=== PATIENT | female | born 1955 | race Caucasian/White ===

== ENCOUNTER 2019-08-29 15:26 | Outpatient (CLI) | payer MEDICARE, OTHER, SELFPAY ==
--- NOTE | ~2019-08-29 | XR_ITS ---
EXAMINATION: XR knee RT 3V EXAM DATE: 08/29/2019 16:07 INDICATION: Bilateral knee pain. Rheumatoid arthritis. TECHNIQUE: Right knee lateral, frontal AP, frontal PA tunnel, sunrise projections. There is no prior study for comparison. Correlation was made with contralateral knee same date. FINDINGS: No evidence osteochondral defect or joint body in the right knee joint. There is moderate patellofemoral and medial tibiofemoral compartment primary osteoarthritis, symmetric to the contrala teral side. There are no acute fractures or dislocations identified. There is no subcutaneous gas. The soft tissue is unremarkable. There are no radiopaque foreign bodies. IMPRESSION: Moderate right knee osteoarthritis. Reviewed, dictated and finalized at location A.
--- NOTE | ~2019-08-29 | XR_ITS ---
EXAMINATION: XR knee LT 3V EXAM DATE: 08/29/2019 16:06 INDICATION: Rheumatoid arthritis. Bilateral knee pain. TECHNIQUE: Left knee lateral, frontal AP, frontal PA tunnel, sunrise projections. There is no prior study for comparison. FINDINGS: No evidence osteochondral defect or joint body in the left knee joint. There is moderate patellofemoral and medial tibiofemoral compartment primary osteoarthritis. No joint effusion. There are no acute fractures or dislocations identified. There is no subcutaneous gas. The soft tissue is unremarkable. There are no radiopaque foreign bodies. IMPRESSION: Moderate left knee osteoarthritis. Reviewed, dictated and finalized at location A.
== END 2019-08-29 15:27 | disposition home or self-care (01) ==
PROVIDERS: PCP Internal Medicine; Visit Provider Internal Medicine
DX: M25.562 Pain in left knee (principal); M25.561 Pain in right knee; M17.0 Bilateral primary osteoarthritis of knee
CPT/HCPCS: 73562

== ENCOUNTER 2019-12-19 17:07 | Outpatient (CLI) | payer MEDICARE, OTHER, SELFPAY ==
--- NOTE | ~2019-12-19 | XR_ITS ---
XR hand BI arthritis min 3V DATE: 12/19/2019 18:19 INDICATION: Pain. Osteoarthritis. TECHNIQUE: 4 views of each hand COMPARISON: None FINDINGS: There are prominent osteoarthritic changes including joint space narrowing and spurring at the interphalangeal joints in particular. Osteoarthritic changes are also noted at the first carpomet acarpal joints. No fracture, dislocation, periosteal reaction or bone destruction is detected. No erosive change or chondrocalcinosis. IMPRESSION: Polyarticular osteoarthritis with predilection for the usual first carpometacarpal and in terphalangeal joints Reviewed, dictated and finalized at location A. IMPRESSION: Polyarticular osteoarthritis with predilection for the usual first carpometacarpal and interphalangeal joints
--- NOTE | ~2019-12-19 | XR_ITS ---
XR foot LT standing 2V DATE: 12/19/2019 18:18 INDICATION: Rheumatoid arthritis TECHNIQUE: Weightbearing AP and lateral views COMPARISON: None FINDINGS: There is osteoarthritic joint space narrowing and spurring at the tarsal and tarsometatarsa l joints as well as first metatarsophalangeal joint. There may be involvement of some of the interpha langeal joints as well but these are not optimally demonstrated due to positioning. Plantar calcaneal enthesopathy without associated erosive change or periostitis. No fracture, dislocation, periosteal reaction or bone destruction. IMPRESSION: Polyarticular osteoarthritis Reviewed, dictated and finalized at location A.
--- NOTE | ~2019-12-19 | XR_ITS ---
XR hip BI 2V w AP pelvis DATE: 12/19/2019 18:18 INDICATION: Rheumatoid arthritis TECHNIQUE: AP pelvis. AP and lateral views of each hip COMPARISON: None FINDINGS: Osteitis pubis. The sacroiliac joints appear normal. Hip joint spaces are symmetric and wel l preserved. No pelvic fracture or bone destruction. No fracture, dislocation, avascular necrosis or bone destruct ion of either hip. Mild levoscoliosis and degenerative change of the lumbar spine. IMPRESSION: Osteitis pubis Reviewed, dictated and finalized at location A. IMPRESSION: Osteitis pubis
--- NOTE | ~2019-12-19 | XR_ITS ---
XR foot RT standing 2V DATE: 12/19/2019 18:18 INDICATION: Rheumatoid arthritis TECHNIQUE: Weightbearing AP and lateral views COMPARISON: None FINDINGS: Osteoarthritic changes are noted at some of the tarsal and tarsometatarsal joints. There is joint space narrowing and mild spurring at the first metatarsophalangeal joint consistent with osteo arthritis. There is narrowing at some of the interphalangeal joints, also consistent with osteoarthri tis. There is mild plantar calcaneal enthesopathy without any associated erosive change or periostitis. No fracture or dislocation, periosteal reaction or bone destruction. IMPRESSION: Polyarticular osteoarthritis Plantar calcaneal enthesopathy Reviewed, dictated and finalized at location A.
[2019-12-19 18:13] LABS: Hematocrit 39.6 % (37.0-47.0); Hemoglobin 13.4 g/dL (12.0-15.0); Mean Corpuscular HGB Conc 33.8 g/dl (32-36); Mean Corpuscular Hemoglobin 32.4 pg (26-34); Mean Corpuscular Volume 95.7 fl (80-100); Mean Platelet Volume 10.6 fl (7.4-10.4); Platelet Count Result 240 k/mm3 (150-375); Red Blood Count 4.14 M/mm3 (4.2-5.4); Red Cell Distribution Width 12.3 % (11.5-14.5); White Blood Count 5.7 K/mm3 (4.5-10.0)
[2019-12-19 18:25] LABS: Add Urine Microscopic? YES; Appearance Urine Cloudy (Clear); Bacteria Urine Trace /hpf; Bilirubin Urine Negative (Negative); Blood Urine Negative (Negative); Color Urine Yellow (Yellow); Glucose Urine UA Negative (Negative); Ketones Urine Negative (Negative); Leukocyte Esterase Ur 3+ LEU/UL (Negative); Mucus Urine Rare /lpf; Nitrate Urine Negative (Negative); Protein Urine 1+ mg/dL (Negative); Specific Grav Ur 1.026 (1.001-1.035); Squamous Epithelial Cell Urine Many /hpf (Few); Urobilinogen Urine Negative mg/dL (<2.0); WBC Urine 31-50 /hpf
[2019-12-19 18:35] LABS: Rheumatoid Factor < 8.6 IU/ML (<12)
[2019-12-19 18:43] LABS: Alanine Aminotransferase 16 U/L (4-35); Albumin Level 4.3 g/dL (3.5-5.1); Alkaline Phosphatase 89 U/L (38-126); Anion Gap 6 mmol/L (8-16); Aspartate Amino Transferase 29 U/L (14-36); Bilirubin,Total 0.5 mg/dL (0.2-1.3); Blood Urea Nitrogen 22 mg/dL (7-17); CRP < 0.5 mg/dL (<1.0); Calcium 9.2 mg/dL (8.4-10.2); Carbon Dioxide 28 mmol/L (22-30); Chloride 103 mmol/L (98-107); Estimated Glomerular Filt Rate > 60; Glucose 116 mg/dL (65-105); Sodium 137 mmol/L (137-145)
[2019-12-19 18:44] LABS: Potassium 4.2 mmol/L (3.4-5.0)
[2019-12-19 19:35] LABS: Erythrocyte Sedimentation Rate 22 mm/hr (0-20)
[2019-12-19 19:49] LABS: Hepatitis B Surface Antigen Negative (Negative)
[2019-12-19 19:54] LABS: Hepatitis B Core IgM Result Negative (Negative)
[2019-12-19 20:07] LABS: Hepatitis B Surface Anti Res Negative
[2019-12-23 09:26] LABS: ANA Cascade Screen Negative (Negative)
[2019-12-25 10:56] LABS: Anti Cyclic Citrullinated Pept <16 Units (<20)
== END 2019-12-19 17:08 | disposition home or self-care (01) ==
PROVIDERS: PCP Internal Medicine; Referring Provider Internal Medicine; Visit Provider Internal Medicine
DX: M05.79 Rheumatoid arthritis with rheumatoid factor of multiple sites without organ or systems involvement (principal); M19.90 Unspecified osteoarthritis, unspecified site; M06.9 Rheumatoid arthritis, unspecified; M19.072 Primary osteoarthritis, left ankle and foot; M19.071 Primary osteoarthritis, right ankle and foot; M19.041 Primary osteoarthritis, right hand; M19.042 Primary osteoarthritis, left hand
CPT/HCPCS: 36415; 73130; 73521; 73620; 80053; 81001; 85027; 85652; 86038; 86140; 86200; 86430; 86705; 86706; 87086; 87088; 87340

== ENCOUNTER 2020-02-26 09:57 | Outpatient (CLI) | payer MEDICARE, OTHER, SELFPAY ==
[2020-02-26 10:23] LABS: Hematocrit 42.1 % (37.0-47.0); Hemoglobin 14.2 g/dL (12.0-15.0); Mean Corpuscular HGB Conc 33.7 g/dl (32-36); Mean Corpuscular Hemoglobin 32.1 pg (26-34); Mean Platelet Volume 10.8 fl (7.4-10.4); Platelet Count Result 206 k/mm3 (150-375); Red Blood Count 4.43 M/mm3 (4.2-5.4); Red Cell Distribution Width 12.1 % (11.5-14.5)
[2020-02-26 10:34] LABS: Add Urine Microscopic? YES; Appearance Urine Cloudy (Clear); Bacteria Urine Trace /hpf; Bilirubin Urine Negative (Negative); Blood Urine Negative (Negative); Color Urine Yellow (Yellow); Glucose Urine UA Negative (Negative); Ketones Urine Negative (Negative); Leukocyte Esterase Ur 3+ LEU/UL (Negative); Mucus Urine Rare /lpf; Nitrate Urine Negative (Negative); Protein Urine Negative (Negative); Specific Grav Ur 1.018 (1.001-1.035); Squamous Epithelial Cell Urine Many /hpf (Few); Transitional Epi Cells Urine Rare /hpf (None Seen); Urobilinogen Urine Negative mg/dL (<2.0)
[2020-02-26 11:53] LABS: Alanine Aminotransferase 22 U/L (4-35); Albumin Level 4.2 g/dL (3.5-5.1); Alkaline Phosphatase 102 U/L (38-126); Anion Gap 7 mmol/L (8-16); Aspartate Amino Transferase 36 U/L (14-36); Bilirubin,Total 0.6 mg/dL (0.2-1.3); Blood Urea Nitrogen 17 mg/dL (7-17); CRP < 0.5 mg/dL (<1.0); Calcium 9.4 mg/dL (8.4-10.2); Carbon Dioxide 26 mmol/L (22-30); Chloride 108 mmol/L (98-107); Estimated Glomerular Filt Rate > 60; Glucose 101 mg/dL (65-105); Potassium 4.1 mmol/L (3.4-5.0); Sodium 141 mmol/L (137-145)
[2020-02-26 11:55] LABS: Hepatitis C Virus Antibody Negative (Negative)
[2020-02-26 12:02] LABS: Erythrocyte Sedimentation Rate 24 mm/hr (0-20)
[2020-02-29 00:59] LABS: NIL 0.02 IU/mL; Quantiferon TB Plus, 1T NEGATIVE (NEGATIVE); TB1-NIL 0.01 IU/mL
== END 2020-02-26 09:58 | disposition home or self-care (01) ==
PROVIDERS: PCP Internal Medicine; Visit Provider Internal Medicine
DX: M05.79 Rheumatoid arthritis with rheumatoid factor of multiple sites without organ or systems involvement (principal); M19.90 Unspecified osteoarthritis, unspecified site
CPT/HCPCS: 36415; 80053; 81001; 85027; 85652; 86140; 86480; 86803; 87086; 87088

== ENCOUNTER 2020-09-24 07:35 | Outpatient (CLI) | payer MEDICARE, OTHER, SELFPAY ==
--- NOTE | 2020-09-24 08:20 | ECG_ITS ---
Measurements Intervals [place] Rate: 55 P: 40 CA: 176 QRS: -12 QRSD: 101 T: 48 QT: 405 QTc: 391 Interpretive Statements SINUS BRADYCARDIA DELAYED PRECORDIAL R/S TRANSITION VOLTAGE CRITERIA FOR LVH BORDERLINE T WAVE ABNORMALITY- ANTERIOR LEADS BORDERLINE ECG Electronically Signed On 09-24-2020 8:41:31 CDT by Ramsey Russell D.O.
[2020-09-24 09:02] LABS: Basophils Percent Auto 0.5 % (0.2-1.2); Eosinophils Absolute Auto 0.1 K/mm3 (0-0.3); Eosinophils Percent Auto 2.3 % (0-4.4); Hematocrit 44.2 % (37.0-47.0); Hemoglobin 14.5 g/dL (12.0-15.0); Immature Granulocyte Absolute 0.01 K/mm3 (0.00-0.031); Immature Granulocyte Percent A 0.3 % (0-0.5); Lymphocytes Absolute Auto 0.94 K/mm3 (0.9-3.2); Lymphocytes Percent Auto 23.9 % (18.3-44.2); Mean Corpuscular HGB Conc 32.8 g/dl (32-36); Mean Corpuscular Hemoglobin 30.9 pg (26-34); Mean Corpuscular Volume 94.2 fl (80-100); Mean Platelet Volume 10.9 fl (7.4-10.4); Monocytes Absolute Auto 0.3 K/mm3 (0.1-0.6); Monocytes Percent Auto 8.7 % (2.6-8.5); Neutrophils Absolute Auto 2.5 K/mm3 (1.3-6.7); Neutrophils Percent Auto 64.3 % (45.5-73.1); Platelet Count Result 212 k/mm3 (150-375); Red Blood Count 4.69 M/mm3 (4.2-5.4); Red Cell Distribution Width 12.5 % (11.5-14.5); White Blood Count 3.9 K/mm3 (4.5-10.0)
[2020-09-24 09:11] LABS: Albumin Level 4.6 g/dL (3.5-5.1); Estimated Glomerular Filt Rate > 60; Glucose 99 mg/dL (65-105)
[2020-09-24 09:12] LABS: Urine Cotinine NEGATIVE
[2020-09-24 09:13] LABS: Hemoglobin A1C 5.2 % (<5.7)
== END 2020-09-24 07:36 | disposition home or self-care (01) ==
LOC: ANHSURGERY 07:40
PROVIDERS: PCP Internal Medicine; Visit Provider Orthopaedic Surgery
DX: M17.0 Bilateral primary osteoarthritis of knee (principal); Z01.818 Encounter for other preprocedural examination; R94.31 Abnormal electrocardiogram [ECG] [EKG]
CPT/HCPCS: 80307; 82040; 82565; 82947; 83036; 85025; 86850; 86900; 86901; 87081; 93005

== ENCOUNTER → 2021-01-07 12:00 | Outpatient (CLI) | payer MEDICARE, OTHER, SELFPAY ==
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
== END ==
PROVIDERS: PCP Internal Medicine; Visit Provider Internal Medicine
DX: Z12.31 Encounter for screening mammogram for malignant neoplasm of breast (principal)
CPT/HCPCS: 77063; 77067

== ENCOUNTER 2021-07-22 01:16 | Day surgery (SDC) | payer MEDICARE, OTHER, SELFPAY ==
[2021-07-13 12:44] VITALS: BMI 35.6
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
[2021-07-22 08:43] VITALS: BP 138/68; PULSE 86; RESP 18; TEMP 36.6; O2SAT 100; BMI 34.9
[2021-07-22] MEDS: LACTATED RINGERS 1,000 ML 150 ML IV CONT (09:06)
[2021-07-22] MEDS: AMPICILLIN 2 GM/NS 100 ML 2 GM/100 ML BAG IVPB (09:07)
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
[2021-07-22 10:09] VITALS: BP 98/89; PULSE 83; RESP 24; O2SAT 95
[2021-07-22 10:19] VITALS: BP 112/86; PULSE 73; RESP 21; O2SAT 98
[2021-07-22 10:29] VITALS: BP 111/58; PULSE 74; RESP 19; O2SAT 100
== END 2021-07-22 10:42 | disposition home or self-care (01) ==
PROVIDERS: PCP Internal Medicine; Visit Provider Internal Medicine Gastroenterology
PROC: 0DJD8ZZ Inspection of Lower Intestinal Tract, Via Natural or Artificial Opening Endoscopic (ICD-10-PCS; CPT 45378; principal; 2021-07-22 10:00)
DX: Z12.11 Encounter for screening for malignant neoplasm of colon (principal); K57.30 Diverticulosis of large intestine without perforation or abscess without bleeding; I10 Essential (primary) hypertension; E78.5 Hyperlipidemia, unspecified; M06.9 Rheumatoid arthritis, unspecified; M17.0 Bilateral primary osteoarthritis of knee
CPT/HCPCS: 45385; 88305; J0290; J2704; J7120

== ENCOUNTER 2022-06-25 08:34 | Outpatient (CLI) | payer MEDICARE, OTHER, SELFPAY ==
[2022-06-25 19:24] LABS: Alanine Aminotransferase 21 U/L (6-35); Albumin Level 4.2 g/dL (3.5-5.1); Alkaline Phosphatase 109 U/L (38-126); Anion Gap 6 mmol/L (8-16); Aspartate Amino Transferase 35 U/L (14-36); Bilirubin,Total 0.7 mg/dL (0.2-1.3); Blood Urea Nitrogen 20 mg/dL (7-17); Carbon Dioxide 27 mmol/L (22-30); Chloride 102 mmol/L (98-107); Cholesterol 133 mg/dL (0-200); Estimated Glomerular Filt Rate > 60; Glucose 101 mg/dL (65-110); HDL Direct 46 mg/dL; Potassium 3.8 mmol/L (3.4-5.0); Sodium 135 mmol/L (137-145); Triglycerides 91 mg/dL (<150)
[2022-06-25 19:35] LABS: LDL Cholesterol Direct 57 mg/dL
== END 2022-06-25 08:35 | disposition home or self-care (01) ==
LOC: ANHGOSHLAB 08:35
PROVIDERS: PCP Family Medicine; Visit Provider Family Medicine
DX: I10 Essential (primary) hypertension (principal); Z13.220 Encounter for screening for lipoid disorders
CPT/HCPCS: 36415; 80053; 80061

== ENCOUNTER 2022-12-10 10:13 | Outpatient (CLI) | payer MEDICARE, OTHER, SELFPAY ==
--- NOTE | 2022-12-13 16:19 | WPDHOLTEREM ---
Holter/Event Monitor Holter/Event Monitor Date of procedure: 12/10/22 Holter/Event Procedure: 48 Hr Holter Monitor Indications: Palpitations Conclusion: 1. 48 hour holter monitor on 12/10/22. 2. Predominant rhythm is sinus rhythm. HR range 42-119 bpm; average HR 74 bpm. HR at 42 bpm was at 01:10. 3. There are 70 premature supraventricular complexes and 1 supraventricular couplet. No supraventricular tachycardia. 4. There are 425 premature ventricular complexes and 5 ventricular couplets. There is 1 episode of ventricular tachycardia at 146 bpm lasting 6 beats at 21:49. 5. No sinoatrial or atrioventricular blocks. No significant pauses greater than 2 seconds. 6. No symptoms available for correlation.
== END 2022-12-10 10:14 | disposition home or self-care (01) ==
LOC: ANHCARD 10:13
PROVIDERS: PCP Family Medicine; Visit Provider Nurse Practitioner
DX: R00.2 Palpitations (principal)
CPT/HCPCS: 93225; 93226

== ENCOUNTER 2022-12-22 13:56 | Outpatient (CLI) | payer MEDICARE, OTHER, SELFPAY ==
[2022-12-22 14:27] LABS: Magnesium 2.1 mg/dL (1.6-2.3)
== END 2022-12-22 13:57 | disposition home or self-care (01) ==
PROVIDERS: PCP Family Medicine; Visit Provider Internal Medicine Cardiovascular Disease
DX: I47.29 Other ventricular tachycardia (principal); E07.9 Disorder of thyroid, unspecified
CPT/HCPCS: 36415; 83735; 84443

== ENCOUNTER 2023-01-18 10:17 | Outpatient (CLI) | payer MEDICARE, OTHER, SELFPAY ==
--- NOTE | ~2023-01-18 | US_ITS ---
EXAMINATION: US thyroid DATE: 01/18/2023 10:49 INDICATION: Nontoxic single thyroid nodule. TECHNIQUE: Multiple ultrasound images of the thyroid were obtained. COMPARISON: None. FINDINGS: The right thyroid lobe measures 5.5 x 1.7 x 1.5 cm. The left thyroid lobe measures 4.9 x 1.8 x 1.8 c m. The thyroid demonstrates heterogeneous echogenicity and increased vascularity. No discrete nodule . IMPRESSION: 1. Heterogeneous, hypervascular thyroid, consistent with chronic lymphocytic (Sony) thyroiditis. Reviewed, dictated and finalized at location E. IMPRESSION: 1. Heterogeneous, hypervascular thyroid, consistent with chronic lymphocytic (H ashimoto) thyroiditis.
--- NOTE | ~2023-01-18 | XR_ITS ---
EXAMINATION: XR chest 2V DATE: 01/18/2023 10:34 INDICATION: Chronic cough TECHNIQUE: PA and lateral views of the chest are obtained. COMPARISON: 06/14/2006 FINDINGS: The lungs are free of acute opacities. No pleural effusion or pneumothorax. The cardiomedia stinal silhouette is normal. There is moderate thoracic spondylosis. IMPRESSION: 1. No acute cardiopulmonary abnormality. Reviewed, dictated and finalized at location A.
== END 2023-01-18 10:18 | disposition home or self-care (01) ==
PROVIDERS: PCP Family Medicine; Visit Provider Family Medicine
DX: J39.8 Other specified diseases of upper respiratory tract (principal); E04.1 Nontoxic single thyroid nodule
CPT/HCPCS: 71046; 76536

== ENCOUNTER 2023-02-04 08:01 | Outpatient (CLI) | payer MEDICARE, OTHER, SELFPAY ==
--- NOTE | 2023-02-04 08:21 | ECHO_ITS ---
Patient Info Name: Supriya Mcdaniels Age: 67 years : 1955 Gender: Female Ht: 50 in Wt: 187 lbs BSA: 1.80 m2 HR: 67 bpm BP: 143 / 80 mmHg Heart Rhythm: Sinus Rhythm Technical Quality: Good Exam Date: 02/04/2023 8:34 AM Exam Location: [facility] Pulmonary Patient Status: Outpatient Admit Date: 02/04/2023 Staff Ordering Physician: Ramsey Russell DO Utility Pipe Layer: Shaylee Ellis RDCS Attending Provider: Ramsey Russell DO Referring Physician: Drew QUIÑONES; Exam Type: CA echo doppler color flow Study Info Indications - Other ventricular tachycardia/other forms of dyspnea Complete two-dimensional, color flow and Doppler transthoracic echocardiogram is performed. Summary 1. Complete two-dimensional, color flow and Doppler transthoracic echocardiogram is performed. 2. Left ventricular chamber dimension is normal. 3. Left ventricular systolic function is normal, estimated at 60-65%. 4. The left ventricular diastolic function is grade II diastolic dysfunction. 5. E/e' 11 is mildly elevated. 6. Left atrial chamber dimension is mildly enlarged. 7. There is mild tricuspid valve regurgitation. 8. No pulmonary hypertension, estimated pulmonary arterial systolic pressure is 32 mmHg. Left Ventricle E/e' 11 is mildly elevated. Left ventricular chamber dimension is normal. Left ventricular systolic function is normal, estimated at 60-65%. The left ventricular diastolic function is grade II diastolic dysfunction. Right Ventricle Right ventricular systolic function is normal and with normal TAPSE 2.1 cm. Right ventricular chamber dimension is normal. Left Atria Left atrial chamber dimension is mildly enlarged. Right Atria Right atrial chamber dimension is normal. Aortic Valve The aortic valve is trileaflet. There is no aortic valve stenosis. There is no aortic valve regurgitation. Pulmonic Valve There is no pulmonic regurgitation. Mitral Valve There is no mitral valve stenosis. There is no mitral valve regurgitation. Tricuspid Valve There is mild tricuspid valve regurgitation. No pulmonary hypertension, estimated pulmonary arterial systolic pressure is 32 mmHg. Pericardium/Pleural There is no pericardial effusion. Inferior Vena Cava Normal inferior vena cava with >50% collapse upon inspiration consistent with normal right atrial pressure, 5 mmHg. Aorta The aortic root size at the sinus of Valsalva is normal. Left Ventricular Outflow Tract Name Value Normal LVOT 2D LVOT Diameter 2.0 cm LVOT Doppler LVOT Peak Gradient 5 mmHg LVOT Mean Gradient 2 mmHg LVOT VTI 24 cm LVOT VTI/AV VTI Ratio 0.7 LVOT Stroke Volume 79 ml LVOT CO 5.2 l/min LVOT CI 2.9 l/min/m2 Pulmonic Valve Name Value Normal RVOT Doppler RVOT Peak Gradient
--- NOTE | 2023-02-04 09:08 | EST_ITS ---
Patient Info Name: Supriya Mcdaniels Age: 67 years : 1955 Gender: Female Ht: 59 in Wt: 187 lbs BSA: 1.93 m2 HR: 60 bpm BP: 123 / 65 mmHg Heart Rhythm: Sinus Rhythm Exam Date: 02/04/2023 9:38 AM Exam Location: [facility] Stress Patient Status: Outpatient Admit Date: 02/04/2023 Staff Ordering Physician: Ramsey Russell DO Attending Provider: Ramsey Russell DO Exercise Technologist: Loraine Chilel CT Exercise Physician: Ramsey Russell DO Exam Type: CA stress test treadmill Study Info Indications R06.09 - Other forms of dyspnea I47.2 - Ventricular tachycardia A treadmill exercise stress test was performed. Summary 1. 1. Negative Imer exercise stress test for ischemic ST changes by ECG criteria. 2. 2. Good functional capacity, achieving 7 METs of workload. 3. 3. Appropriate HR response to exercise. 4. 4. Appropriate HR recovery at 1 minute post exercise. 5. 5. No imaging with stress testing. 6. 6. Patient informed of the above results. Protocol: [place]mer Stress ECG Details Stage: REST Duration (min): 5 min : 49 sec Speed (mph): 0.0 Grade (%): 0 HR (bpm): 60 SBP (mmHg): 123 DBP (mmHg): 65 METS: --- Stage: STAGE 1 Duration (min): 1 min : 0 sec Speed (mph): 1.7 Grade (%): 10 HR (bpm): 97 SBP (mmHg): 123 DBP (mmHg): 65 METS: --- Stage: STAGE 1 Duration (min): 2 min : 0 sec Speed (mph): 1.7 Grade (%): 10 HR (bpm): 104 SBP (mmHg): 123 DBP (mmHg): 65 METS: --- Stage: STAGE 1 Duration (min): 3 min : 0 sec Speed (mph): 1.7 Grade (%): 10 HR (bpm): 109 SBP (mmHg): 172 DBP (mmHg): 80 METS: --- Stage: STAGE 2 Duration (min): 1 min : 0 sec Speed (mph): 2.5 Grade (%): 12 HR (bpm): 120 SBP (mmHg): 172 DBP (mmHg): 80 METS: --- Stage: STAGE 2 Duration (min): 2 min : 0 sec Speed (mph): 2.5 Grade (%): 12 HR (bpm): 130 SBP (mmHg): 153 DBP (mmHg): 75 METS: --- Stage: STAGE 2 Duration (min): 2 min : 30 sec Speed (mph): 2.5 Grade (%): 12 HR (bpm): 133 SBP (mmHg): 153 DBP (mmHg): 75 METS: --- Stage: RECOVERY Duration (min): 0 min : 29 sec Speed (mph): 0.0 Grade (%): 0 HR (bpm): 127 SBP (mmHg): 153 DBP (mmHg): 75 METS: --- Stage: RECOVERY Duration (min): 1 min : 29 sec Speed (mph): 0.0 Grade (%): 0 HR (bpm): 84 SBP (mmHg): 153 DBP (mmHg): 75 METS: --- Stage: RECOVERY Duration (min): 2 min : 29 sec Speed (mph): 0.0 Grade (%): 0 HR (bpm): 72 SBP (mmHg): 153 DBP (mmHg): 75 METS: --- Stage: RECOVERY Duration (min): 3 min : 24 sec Speed (mph): 0.0 Grade (%): 0 HR (bpm): 72 SBP (mmHg): 138 DBP (mmHg): 68 METS: --- Rest HR: 60 bpm Peak HR: 133 bpm Rest Sys BP: 123 mmHg Peak Sys BP: 172 mmHg Max Pred HR: 153 bpm % Max Pred HR: 87 % Target HR: 130 bpm Max RPP: 22,876 bpm*mmHg Burton Score: -13 Termination Reason: Reached target heart rate or workload Cardiac Symptoms: Shortness of breath Max ST Seg Deviation: 3.70 mm
== END 2023-02-04 08:02 | disposition home or self-care (01) ==
LOC: ANHCARD 08:02
PROVIDERS: PCP Family Medicine; Visit Provider Internal Medicine Cardiovascular Disease
DX: R06.09 Other forms of dyspnea (principal); I47.29 Other ventricular tachycardia; I36.1 Nonrheumatic tricuspid (valve) insufficiency
CPT/HCPCS: 93017; 93306

== ENCOUNTER 2023-03-22 08:53 | Outpatient (CLI) | payer MEDICARE, OTHER, SELFPAY ==
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
[2023-04-14 20:54] VITALS: BMI 38.7
== END 2023-03-23 08:00 | disposition home or self-care (01) ==
LOC: ANHCSM 08:54
PROVIDERS: PCP Family Medicine; Visit Provider Internal Medicine Cardiovascular Disease
DX: G47.33 Obstructive sleep apnea (adult) (pediatric) (principal); G47.10 Hypersomnia, unspecified; I10 Essential (primary) hypertension; E78.5 Hyperlipidemia, unspecified; M06.9 Rheumatoid arthritis, unspecified
CPT/HCPCS: 95800

== ENCOUNTER 2023-04-05 11:14 | Outpatient (NON) | payer MEDICARE, OTHER, SELFPAY | END 2023-04-05 11:15 | disposition home or self-care (01) | LOC: ANHGOSHLAB 11:15 | PROVIDERS: PCP Family Medicine; Visit Provider Nurse Practitioner Family | DX: R39.9 Unspecified symptoms and signs involving the genitourinary system (principal) | CPT/HCPCS: 87086; 87088 ==

== ENCOUNTER → 2023-05-24 11:55 | Outpatient (CLI) | payer MEDICARE, SELFPAY ==
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
--- NOTE | ~2023-05-24 | DEXA_ITS ---
Bone Density Report Name: DAMIAN VELÁSQUEZ Age: 68 Sex: Female Ethnicity: White Date of : 1955 Indication: postmenopausal; screening for osteoporosis; hysterectomy; rheumatoid arthritis; Referring Provider: MERI ESPINOSA Study: Bone densitometry was performed. Exam Date: May 24, 2023 Accession number: [id number] Bone Density: Region BMD T-score Z-score Classification AP Spine (L1-L4) 0.792 -2.3 -0.3 Osteopenia Femoral Neck (Left) 0.608 -2.2 -0.5 Osteopenia Total Hip (Left) 0.741 -1.6 -0.3 Osteopenia Femoral Neck (Right) 0.667 -1.6 0.0 Osteopenia Total Hip (Right) 0.761 -1.5 -0.1 Osteopenia Total Hip Mean 0.751 -1.6 -0.2 Osteopenia World Health Organization criteria for BMD impression classify patients as: Normal (T-score at or above -1.0), Osteopenia (T-score between -1.0 and -2.5), or Osteoporosis (T-score at or below -2.5). 10-year Fracture Risk(1): Major Osteoporotic Fracture 14% Hip Fracture 2.7% Reported Risk Factors: [place] (), Neck BMD=0.608, BMI=38.4, rheumatoid arthritis (1) FRAX(R) Version 3.08. Fracture probability calculated for an untreated patient. Fracture probability may be lower if the patient has received treatment. Clinical Information Provided by Patient: Has rheumatoid arthritis Has the following medical conditions: Hysterectomy Patient maximum height was 59.5 Menopause Age: 50 No regular weight bearing exercise Drinks caffeinated beverages Onset of menses at age 13 Number of children 3 Impression: The patient has low bone mass, based on the Total Spine T-score. The patient has an estimated ten-year risk of hip fracture of 2.7% and an estimated ten-year risk of major fracture of 14%, based on the WHO FRAX algorithm. Discussion: BONE DENSITY IS LOW AT ONE OR MORE SKELETAL SITES. This patient's lowest T-score is low at one or more skeletal sites. It meets the World Health Organization's (WHO) criteria for ?low bone mass? (T-score between -1.0 and -2.5). The patient's 10-year risk of fracture as calculated by FRAX is less than the threshold where pharmacological therapy is recommended by the National Osteoporosis Foundation (NOF). However, all treatment decisions require clinical judgment and consideration of individual patient factors, including patient preferences, comorbidities, previous drug use, risk factors not captured in the FRAX model (e.g., frailty, falls, vitamin D deficiency, increased bone turnover, interval significant decline in bone density) and possible under or overestimation of fracture risk by FRAX. The patient should follow a healthful lifestyle (good nutrition with adequate calcium and vitamin D, and appropriate weight-bearing exercise). Follow-Up: Consider repeating this study in 2 to 3 years to reassess this patient's status, or so
== END ==
PROVIDERS: PCP Family Medicine; Visit Provider Family Medicine
DX: Z12.31 Encounter for screening mammogram for malignant neoplasm of breast (principal); Z81.0 Family history of intellectual disabilities; R92.8 Other abnormal and inconclusive findings on diagnostic imaging of breast; M85.88 Other specified disorders of bone density and structure, other site; M85.852 Other specified disorders of bone density and structure, left thigh; M85.851 Other specified disorders of bone density and structure, right thigh
CPT/HCPCS: 77063; 77067; 77080

== ENCOUNTER → 2023-06-20 08:05 | Outpatient (CLI) | payer MEDICARE, SELFPAY ==
--- NOTE | ~2023-06-20 | MMUS_ITS ---
EXAMINATION: MM diagnostic clifford RT w karon, US breast RT limited HISTORY: Right breast mass on screening mammogram TECHNIQUE: Additional 3-D tomosynthesis images of the right breast were performed and synthetic 2-D i mages were generated. CAD analysis was submitted and interpreted. High resolution limited right breas t ultrasound was performed. COMPARISON: 05/24/2023, 01/07/2021 FINDINGS: MAMMOGRAPHIC FINDINGS: There is a 4 mm low-density, obscured, round mass in the middle third of the upper-outer quadrant of the breast at the 10:00 location, 7.5 cm from the nipple. No suspicious calcification or architectura l distortion are identified. ULTRASOUND: There is a 4 mm round, circumscribed, parallel, hypoechoic mass with no posterior features or interna l vascularity at the 10:00 location, 6 cm from the nipple. IMPRESSION: 1. Probably benign right breast mass. 2. Recommend 6 month follow-up right diagnostic mammogram and ultrasound. BI-RADS category 3, probably benign findings. Reviewed, dictated and finalized at location B. R NURSE IMPRESSION: 1. Probably benign right breast mass. 2. Recommend 6 month follow-up right diagnostic mammogram and ultrasound. BI-RADS category 3, probably benign findings.
== END ==
PROVIDERS: PCP Family Medicine; Visit Provider Family Medicine
DX: R92.0 Mammographic microcalcification found on diagnostic imaging of breast (principal); R92.8 Other abnormal and inconclusive findings on diagnostic imaging of breast
CPT/HCPCS: 76642; 77061; 77065; G0279

== ENCOUNTER 2023-07-15 12:48 | Outpatient (CLI) | payer MEDICARE, OTHER, SELFPAY ==
[2023-07-15 13:40] LABS: Alanine Aminotransferase 19 U/L (6-35); Albumin Level 4.2 g/dL (3.5-5.1); Alkaline Phosphatase 105 U/L (38-126); Anion Gap 10 mmol/L (4-12); Aspartate Amino Transferase 29 U/L (14-36); Bilirubin,Total 0.4 mg/dL (0.2-1.3); Blood Urea Nitrogen 27 mg/dL (7-17); Calcium 9.2 mg/dL (8.4-10.2); Carbon Dioxide 22 mmol/L (22-30); Chloride 107 mmol/L (98-107); Cholesterol 136 mg/dL (0-200); Estimated Glomerular Filt Rate 55; Glucose 157 mg/dL (65-110); HDL Direct 44 mg/dL; Potassium 4.2 mmol/L (3.4-5.0); Sodium 139 mmol/L (137-145); Triglycerides 209 mg/dL (<150)
[2023-07-15 13:51] LABS: LDL Cholesterol Direct 68 mg/dL
[2023-07-15 14:28] LABS: Free T4 Free Thyroxine 1.13 ng/mL (0.78-2.19)
== END 2023-07-15 12:49 | disposition home or self-care (01) ==
PROVIDERS: PCP Family Medicine; Visit Provider Family Medicine
DX: E03.9 Hypothyroidism, unspecified (principal); Z13.228 Encounter for screening for other metabolic disorders; I10 Essential (primary) hypertension; Z13.220 Encounter for screening for lipoid disorders
CPT/HCPCS: 36415; 80053; 80061; 84439; 84443

== ENCOUNTER 2023-08-23 08:32 | Outpatient (CLI) | payer MEDICARE, OTHER, SELFPAY ==
[2023-08-23 14:15] LABS: Anion Gap 9 mmol/L (4-12); Blood Urea Nitrogen 21 mg/dL (7-17); Carbon Dioxide 25 mmol/L (22-30); Chloride 106 mmol/L (98-107); Estimated Glomerular Filt Rate > 60; Glucose 92 mg/dL (65-110); Potassium 4.2 mmol/L (3.4-5.0); Sodium 140 mmol/L (137-145)
[2023-08-23 14:35] LABS: Hemoglobin A1C 5.4 % (<5.7)
== END 2023-08-23 08:33 | disposition home or self-care (01) ==
PROVIDERS: PCP Family Medicine; Visit Provider Family Medicine
DX: R73.9 Hyperglycemia, unspecified (principal); Z13.228 Encounter for screening for other metabolic disorders
CPT/HCPCS: 36415; 80048; 83036

== ENCOUNTER 2023-11-29 14:09 | Emergency (ER) | payer MEDICARE, OTHER, SELFPAY ==
--- NOTE | ~2023-11-29 | CT_ITS ---
EXAMINATION: CT abdomen pelvis w con DATE: 11/29/2023 16:42 INDICATION: Right upper quad and abdominal pain TECHNIQUE: Computed tomography (CT) of the abdomen and pelvis was performed with 100 mL Omnipaque-350 intravenous contrast. Automated exposure control and iterative reconstruction technique were employe d. The dose-length product was 800.09 mGy-cm. COMPARISON: None FINDINGS: Lung bases are clear. Heart size is normal. No pericardial or pleural effusion. Small sliding-type hi atal hernia. Liver, gallbladder, spleen, pancreas, bilateral adrenal glands and kidneys are normal. B owels including the appendix are normal. Bladder is normal. 2. Small sliding-type hiatal hernia. Age-appropriate atrophy of the uterus. No free intraperitoneal g as or fluid. Very small fat-containing umbilical hernia. Mild lumbar dextrocurvature with moderate to severe spondylosis. IMPRESSION: 1. No acute intra-abdominal/pelvic process. Reviewed, dictated and finalized at location A.
[2023-11-29 14:13] VITALS: BP 141/69; PULSE 85; RESP 18; TEMP 36.6; O2SAT 99
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
[2023-11-29 14:36] LABS: Basophils Percent Auto 0.4 % (0.2-1.2); Eosinophils Absolute Auto 0.2 K/mm3 (0-0.3); Eosinophils Percent Auto 2.3 % (0-4.4); Hemoglobin 13.8 g/dL (12.0-15.0); Immature Granulocyte Absolute 0.01 K/mm3 (0.00-0.031); Immature Granulocyte Percent A 0.1 % (0-0.5); Lymphocytes Absolute Auto 1.57 K/mm3 (0.9-3.2); Lymphocytes Percent Auto 22.9 % (18.3-44.2); Mean Corpuscular HGB Conc 33.7 g/dl (32-36); Mean Corpuscular Hemoglobin 31.9 pg (26-34); Mean Corpuscular Volume 94.7 fl (80-100); Mean Platelet Volume 10.4 fl (7.4-10.4); Monocytes Absolute Auto 0.5 K/mm3 (0.1-0.6); Monocytes Percent Auto 6.9 % (2.6-8.5); Neutrophils Absolute Auto 4.6 K/mm3 (1.3-6.7); Neutrophils Percent Auto 67.4 % (45.5-73.1); Platelet Count Result 302 k/mm3 (150-375); Red Blood Count 4.33 M/mm3 (4.2-5.4); Red Cell Distribution Width 12.4 % (11.5-14.5); White Blood Count 6.9 K/mm3 (4.5-10.0)
[2023-11-29 14:45] LABS: Alanine Aminotransferase 19 U/L (6-35); Albumin Level 4.4 g/dL (3.5-5.1); Alkaline Phosphatase 93 U/L (38-126); Anion Gap 13 mmol/L (4-12); Aspartate Amino Transferase 27 U/L (14-36); Bilirubin,Total 0.3 mg/dL (0.2-1.3); Blood Urea Nitrogen 27 mg/dL (7-17); Calcium 9.6 mg/dL (8.4-10.2); Carbon Dioxide 24 mmol/L (22-30); Chloride 100 mmol/L (98-107); Estimated Glomerular Filt Rate 55; Glucose 254 mg/dL (65-110); Lipase 188 U/L (23-300); Potassium 3.9 mmol/L (3.4-5.0); Sodium 137 mmol/L (137-145)
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
[2023-11-29] MEDS: SODIUM CHLORIDE 0.9% IV 1,000 ML 999 ML IV CONT (16:27)
[2023-11-29 17:06] LABS: Add Urine Microscopic? YES; Appearance Urine Clear (Clear); Bacteria Urine Rare /hpf; Bilirubin Urine Negative (Negative); Blood Urine Negative (Negative); Color Urine Yellow (Yellow); Glucose Urine UA Negative (Negative); Ketones Urine Negative (Negative); Leukocyte Esterase Ur 3+ LEU/UL (Negative); Need Manual Microscopic Reviewed; Nitrate Urine Negative (Negative); Non Pathogenic Casts 0-2; Protein Urine Negative (Negative); RBC Urine 0-2 /hpf (0-2); Specific Grav Ur 1.017 (1.001-1.035); Squamous Epithelial Cell Urine Moderate /hpf (Few); Urobilinogen Urine 0.2 mg/dL (<2.0); WBC Urine 21-50 /hpf (0-3)
[2023-11-29 17:16] VITALS: BP 119/97; PULSE 82; RESP 16; TEMP 36.6; O2SAT 99
[2023-11-29 18:02] VITALS: BP 130/66; PULSE 80; RESP 16; TEMP 36.6; O2SAT 98
[2023-11-29 18:32] VITALS: BP 119/66; PULSE 82; RESP 16; TEMP 36.6; O2SAT 98
== END 2023-11-29 18:44 | disposition home or self-care (01) ==
PROVIDERS: Nurse Practitioner Family; Emergency Provider Emergency Medicine; PCP Family Medicine
DX: N39.0 Urinary tract infection, site not specified (principal)
CPT/HCPCS: 36415; 74177; 80053; 81001; 83690; 85025; 87086; 96361; 96365; 99284; J0696; J7030; Q9967

== ENCOUNTER 2024-01-24 08:22 | Outpatient (CLI) | payer MEDICARE, SELFPAY ==
--- NOTE | ~2024-01-24 | MMUS_ITS ---
EXAMINATION: MM diagnostic clifford RT w karon, US breast RT limited HISTORY: Follow-up right breast mass TECHNIQUE: Additional 3-D tomosynthesis images of the right breast were performed and synthetic 2-D i mages were generated. CAD analysis was submitted and interpreted. High resolution Limited right breas t ultrasound was performed. COMPARISON: Comparison to multiple prior studies sequentially, with oldest reviewed study dated 01/07. BREAST PARENCHYMAL COMPOSITION: Not dense: There are scattered areas of fibroglandular density. FINDINGS: MAMMOGRAPHIC FINDINGS: There are persistent asymmetries in the upper outer quadrant of the right breast without significant change. No new masses, calcifications or architectural distortion. ULTRASOUND: Limited right breast ultrasound: At 10:00, 6 cm from the nipple there is an oval 3 mm cyst. No suspic ious masses to suggest malignancy. IMPRESSION: 1. No evidence for malignancy in the right breast. Benign finding. 2. Routine yearly screening mammogram and regular clinical breast examination are recommended. BI-RADS Category 2: Benign finding(s). Reviewed, dictated and finalized at location B. IMPRESSION: 1. No evidence for malignancy in the right breast. Benign finding. 2. Routine yearly screening mammogram and regular clinical breast examination a re recommended. BI-RADS Category 2: Benign finding(s).
== END 2024-01-24 08:23 | disposition home or self-care (01) ==
LOC: MICIMG 08:23
PROVIDERS: PCP Family Medicine; Visit Provider Family Medicine
DX: R92.8 Other abnormal and inconclusive findings on diagnostic imaging of breast (principal)
CPT/HCPCS: 76642; 77061; 77065; G0279

== ENCOUNTER 2024-01-31 10:00 | Outpatient (CLI) | payer MEDICARE, SELFPAY ==
[2024-01-31 20:12] LABS: Alanine Aminotransferase 18 U/L (6-35); Albumin Level 4.4 g/dL (3.5-5.1); Alkaline Phosphatase 97 U/L (38-126); Anion Gap 7 mmol/L (4-12); Aspartate Amino Transferase 35 U/L (14-36); Bilirubin,Total 0.6 mg/dL (0.2-1.3); Blood Urea Nitrogen 18 mg/dL (7-17); Calcium 9.7 mg/dL (8.4-10.2); Carbon Dioxide 27 mmol/L (22-30); Chloride 105 mmol/L (98-107); Estimated Glomerular Filt Rate > 60; Glucose 96 mg/dL (65-110); Potassium 4.5 mmol/L (3.4-5.0); Sodium 139 mmol/L (137-145)
[2024-01-31 21:05] LABS: Hemoglobin A1C 5.6 % (<5.7)
== END 2024-01-31 10:01 | disposition home or self-care (01) ==
LOC: ANHGOSHLAB 10:01
PROVIDERS: PCP Family Medicine; Visit Provider Family Medicine
DX: E11.9 Type 2 diabetes mellitus without complications (principal); Z13.228 Encounter for screening for other metabolic disorders
CPT/HCPCS: 36415; 80053; 83036

== ENCOUNTER → 2024-03-08 15:04 | Outpatient (REF) | payer MEDICARE, SELFPAY | LOC: ANHLAB 15:04 | PROVIDERS: PCP Family Medicine; Visit Provider Physician Assistant Surgical | DX: D48.9 Neoplasm of uncertain behavior, unspecified (principal) | CPT/HCPCS: 88305 ==

== ENCOUNTER 2024-06-13 08:31 | Outpatient (CLI) | payer MEDICARE, OTHER, SELFPAY ==
--- NOTE | ~2024-06-13 | XR_ITS ---
EXAMINATION: XR lumbar spine 2-3V DATE: 06/13/2024 09:03 INDICATION: Low back pain TECHNIQUE: Anteroposterior and lateral views of the lumbar spine, and cone-down lateral view of the l umbosacral junction were obtained. COMPARISON: None. FINDINGS: 9 degrees lumbar levocurvature. 3 mm anterolisthesis L3 on L4. Vertebral body heights are normal. Mod erate disc height loss at L3-L4. Mild disc height loss at L2-L3, L4-L5 and L5-S1. Severe facet osteoa rthritis at L4-L5 and L5-S1. Lumbar facet osteoarthritis, moderate bilaterally at L3-L4 and severe at L4-L5 and L5-S1. Mild bilateral sacroiliac osteoarthritis. IMPRESSION: 1. 9 degrees lumbar levocurvature with moderate spondylosis. Reviewed, dictated and finalized at location B. TRONEURODIAGNOSTIC TECHNOLOGIST
--- OUTSIDE RECORDS SUMMARY | 2024-06-13 08:53 | XMS_ITS | CONTINUITY OF CARE DOCUMENT ---
Author Name catherine alexander Address Unknown Organization [facility] Address [address] [place] [address] Phone [phone] Care Team Providers Care Reservoir Engineer Name Role Phone catherine alexander Unavailable Unavailable
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
--- OUTSIDE RECORDS SUMMARY | 2024-06-13 08:53 | XMS_ITS | Clinical Summary ---
Author Organization [facility] [employer] Address [address] [place] [address] Care Team Providers Care Senior Packaging Engineer Name Role Phone Kirk Giron MD Unavailable [phone] Tacos Álvarez MD Unavailable [phone] Kirk Giron MD Primary Care Provider [phone] Source Comments [facility],non-owned Affiliates and Associated Physician Practices is amultiple site organization consisting of ambulatory clinics and hospital sitesin [place], [place], [place] and [place]. This disclosure is being madepursuant to the Care Everywhere program and may not contain all information available regarding this patient. Last updated 18.[facility] [employer] Allergies No known active allergies Medications * [...] Pcv13 Conj 08/03/2016 ZOSTER VACCINE, LIVE 12/18/2012 Family History Medical History Relation Name Comments Other Brother 2 stroke Other Father heart attack Other Mother arthritis, high blood pressure Relation Name Status Comments Brother 1 Alive 7 Brother 2 Father Mother Alive Sister Alive 2 Social History Tobacco Use Types Packs/Day Years [...] 02/09/2018 10:37 AM CDT Plan of Treatment Health Maintenance Due Date Last Done Comments BONE DENSITY TESTING 1955 COLOGUARD (AGES 45-75) - COLON CA SCREENING 1955 COLON MONITORING 1955 COLONOSCOPY - COLON CA SCREENING 1955 CT COLONOGRAPHY - COLON CA SCREENING 1955 Colorectal Cancer Screening 1955 FIT - COLON CA SCREENING 1955 FLEX SIG - COLON CA SCREENING 1955 MAMMOGRAM 1955 HEPATITIS C SCREENING 03/28/1973 DTAP/TDAP/TD VACCINES (1 - Tdap) 1974 ZOSTER VACCINE (2 of 3) 02/12/2013 12/18/2012 PNEUMOCOCCAL VACCINE 50+ (2 of 2 - PPSV23) 08/03/2017 08/03/2016 SCREENING FOR DIABETES 06/14/2021 9, 02/09/2018, 10/13/2017, Additional history exists COVID-19 VACCINE ( season) 2023 INFLUENZA VACCINE (#1) 2023 DEPRESSION SCREENING 04/18/2024 MEDICARE AWV CALENDAR YEAR 2024 Respiratory Syncytial Virus (RSV) Vaccine Pt: or over 60 yrs (1 - 1-dose 75+ series) 2030 HEPATITIS B VACCINE Aged Out No longe r eligible based on patient's age to complete this topic HIB VACCINE Aged Out No longer eligi ble based on patient's age to complete this topic HPV VACCINE Aged Out No longer eligi ble based on patient's age to complete this topic MENINGOCOCCAL (Group B) VACCINE Aged Out No longer eligible based on patient's age to complete this topic MENINGOCOCCAL VACCINE Aged Out No jake dahiana eligible based on patient's age to complete this topic Procedures Procedure Name Priority Date/Time Associated Diagnosis Comments COMPREHENSIVE METABOLIC PANEL Routine 06/14/2018 11:21 AM JIGSAWYER Rheumatoid arthritis involving multiple sites, unspecified rheumatoid factor presence from Last 3 Months or Most Recently Relevant to Health Maintenance Results * (ABNORMAL) COMPREHENSIVE METABOLIC PANEL (06/14/2018 11:21 AM JIGSAWYER) Glucose 82 74 - 106 mg/dL [facility] [...] BLOOD SPECIMEN / Unknown 06/14/2018 11:21 AM JIGSAWYER 06/14/2018 Narrative Resulting Agency Comment [facility] [address] [place] [phone] Tacos Álvarez MD LAB - CHEMISTRY ORD ERABLES [facility] ACCOUNT BILL [address] [place] [address] from Last 3 Months or Most Recently Relevant to Health Maintenance Care Teams Senior Packaging Engineer Relationship Specialty Start Date End Date Kirk Giron MD [address] [place] [id number] PCP - General 07/24/21 Kirk Giron MD [address] [place] [phone] Gastroenterology 02/04/10 Tacos Álvarez MD [address] [place] [id number] Rheumatology 06/11/11
--- OUTSIDE RECORDS SUMMARY | 2024-06-13 08:53 | XMS_ITS | Clinical Summary ---
Author Organization [facility] Address [address] [place] [address] Care Team Providers Care Hospital Director Name Role Phone Booker Prakash Primary Care Provider [phone] Allergies No known active allergies Medications amLODIPine (NORVASC) 10 mg tabletIndication s:hypertension Take 1 tablet (10 mg total) by mouth every morning 1 Active atorvastatin (LIPITOR) 20 mg tabletIndication s:hyperlipidemia Take 1 tablet (20 mg total) by mouth nightly Active lisinopriL (PRINIVIL,ZESTRI L) 10 mg tabletIndication s:hypertension Take 1 tablet (10 mg total) by mouth nightly 9 Active oxyCODONE (ROXICODONE) 5 mg immediate release tabletIndication s:Pain Take 1 tablet (5 mg total) by mouth every 4 (four) hours as needed for pain 30 tablet 2 Active aspirin 81 mg enteric coated tabletIndication s:prevention of thrombosis Take 1 tablet (81 mg total) by mouth 2 (two) times a day 60 tablet 2 Active senna-docusate (Senna-S) 8.6-50 mg Take 2 tablets by mouth 2 (two) times a day 80 tablet 1 2 Active acetaminophen (TYLENOL) 500 mg tablet 2 tablet EVERY 8 HOURS (route: oral) 2 Active amoxicillin 500 mg capsule 2 Active HYDROcodone-acet aminophen (NORCO) 10-325 mg per tablet 2 Active meloxicam (MOBIC) 7.5 mg tablet Take 1 tablet (7.5 mg total) by mouth daily 30 tablet 2 Active traMADoL (ULTRAM) 50 mg tablet Take 1 tablet (50 mg total) by mouth every 8 (eight) hours as needed for pain 42 tablet 2 Active albuterol HFA (PROVENTIL HFA,VENTOLIN HFA,PROAIR HFA) 90 mcg/actuation inhaler INHALE 2 PUFFS BY MOUTH EVERY 4 HOURS NEEDED FOR SHORTNESS OF BREATH OR WHEEZING 3 Active benzonatate (TESSALON) 200 mg capsule TAKE 1 CAPSULE BY MOUTH THREE TIMES DAILY NEEDED FOR COUGH 3 Active cephalexin (KEFLEX) 500 mg capsule TAKE 1 CAPSULE BY MOUTH EVERY 8 HOURS 3 Active methylPREDNISolo ne (MEDROL DOSEPACK) 4 mg Dosepack FOLLOW PACKAGE DIRECTIONS 3 Active metoprolol XL (TOPROL-XL) 25 mg extended release tablet Take 1 tablet (25 mg total) by mouth daily 3 Active nitrofurantoin monohydrate (MACROBID) 100 mg capsule TAKE 1 CAPSULE BY MOUTH EVERY 12 HOURS WITH FOOD 3 Active Active Problems Problem Noted Date Diagnosed Date Primary osteoarthritis of left knee 12/08/2021 Overview (12/08/2021): Added automatically from request for surgery [id number] HTN (hypertension) 04/14/2021 HLD (hyperlipidemia) 04/14/2021 Class 2 obesity in adult 04/14/2021 Risk factors for obstructive sleep apnea 021 Primary osteoarthritis of right knee 02/10/2021 Overview (02/10/2021): Added automatically from request for surgery [id number] Surgical History Surgery Date Site/Laterality Comments HYSTERECTOMY SKIN GRAFT JOINT REPLACEMENT 04/20/2021 Right Knee Medical History Medical History Date Comments HTN (hypertension) HLD (hyperlipidemia) OA (osteoarthritis) Obesity Frequent UTI Family History Medical History Relation Name Comments Stroke Brother Heart attack Father Anesthesia problems Neg Hx Relation Name Status Comments Brother Father Social History Tobacco Use Types Packs/Day Years Used Date Smoking Tobacco: Never Smokeless Tobacco: Never Tobacco Cessation:Counseling Given: Not Answered AUDIT-C Answer Date Recorded Q1: How often do you have a drink containing alcohol? Never 01/11/2022 Q2: How many drinks containi ng alcohol do you have on a typical day when you are drinking? Patient does not drink Q3: How often do you have si x or more drinks on one occasion? Never 01/11/2022 Comments No Sex and Gender Information Value Date Recorded Sex Assigned at Not on file Legal Sex Female 12:35 PM CDT Gender Identity Not on file Sexual Orientation Not on file Obstetrics History Last Filed Vital Signs Vital Sign Reading Time Taken Comments Blood Pressure 130/65 01/12/2022 8:30 AM CDT Pulse 64 01/12/2022 8:30 AM CDT Temperature 36.6 C (97.9 F) 01/12/2022 8:30 AM CDT Respiratory Rate 18 01/12/2022 3:37 AM CDT Oxygen Saturation 97% 01/12/2022 8:30 AM CDT Inhaled Oxygen Concentration - - Weight 82.7 kg (182 lb 6.4 oz) 01/11/2022 5:54 A M CDT Height 149.9 cm (4' 11 ) 01/11/2022 5:54 AM CDT Body Mass Index 36.84 01/11/2022 5:54 AM CDT Plan of Treatment Health Maintenance Due Date Last Done Comments Breast Cancer Screening-Mammogram 1955 Colon Cancer Screening-Colonoscopy 1955 Depression Screening 1955 Hepatitis C Screening 1955 Osteoporosis Screening-Bone Density Scan 1955 DTaP/Tdap/Td Vaccine (1 - Tdap) 1966 Hepatitis B Screening 1973 Pneumococcal vaccine 65+ (2 of 2 - PPSV23) 08/02/2017 08/02/2016 Well Visit 65+ 2020 Fall Risk Assessment 01/12/2023 01/12/2022 Covid-19 Vaccine (4 - 2023-2 5 season) 2023 02/06/2021, 07/22/2020, 06/29/2020 Influenza Vaccine (#1) 2023 , 12/27/2019, 12/21/2018, Additional history exists Zoster Vaccine Completed 04/03/2018, 01/16, 12/20/2012 Medical Devices Implanted Type Area Sawmilling Operator Device Identifier Shelf Expiration Date Model / Serial / Lot [employer] 5517-F-202 Triathlon Cruciate Retain Bead Knee Right 2 Component Femoral Pa - Sna - [id number] Implanted:Qty: 1 on 04/20/2021 by Beto Jose MD at [facility] Other - see comments Right: Knee [employer] [id number] 09/03/2025 5517-F-2 02 / NA / [id number] Description:Implant pause pe rformed prior to implant being opened to sterile field. [employer] 5536-B-300 Triathalon 44mm 67mm 3 Baseplate Tibial Tritanium Sterile Latex - Sna - [id number] Implanted:Qty: 1 on 04/20/2021 by Beto Jose MD at [facility] Other - see comments Right: Knee [employer] [id number] 02/18/2026 5536-B-3 00 / NA / [id number] Description:Implant pause pe rformed prior to implant being opened to sterile field. [employer] 6308-M-855-E Insert Tibial Triathlon 3 H10 Mm Knee Bearing Condylar Stabilize Sterile - Sna - [id number] Implanted:Qty: 1 on 04/20/2021 by Beto Jose MD at [facility] Other - see comments Right: Knee [employer] [id number] 02/16/2026 5531-G-3 10-E / NA / [id number] Description:Implant pause pe rformed prior to implant being opened to sterile field. [employer] Triathlon Cruciate Retain Bead Knee Left 3 Component Femoral Pa 5517-F-301 - [id number] Implanted:Qty: 1 on 01/11/2022 by Beto Jose MD at [facility] Left: Knee [employer] [id number] 07/08/2026 5517-F-3 / / [id number] [employer] Triathalon 44mm 67mm 3 Baseplate Tibial Tritanium Sterile Latex 5536-B-300 - [id number] Implanted:Qty: 1 on 01/11/2022 by Beto Jose MD at [facility] Left: Knee [employer] [id number] 09/10/2026 5536-B-3 00 / / [id number] Description:Implant pause do ne prior to opening all implants [employer] Triathlon 12mm Bearing Condylar Stabilize Knee 3 Insert Tibial 1785-C-518-E - [id number] Implanted:Qty: 1 on 01/11/2022 by Beto Jose MD at [facility] Left: Knee [employer] [id number] 01/27/2026 5531-G-3 12-E / / [id number] Explanted Type Area Sawmilling Operator Device Identifier Shelf Expiration Date Model / Serial / Lot [employer] [id number] 4mm 110mm Pin Fixation Sterile - Sna - [id number] Explanted:Qty: 1 on 04/20/2021 by Beto Jose MD at [facility] Pin Right: Knee [employer] [id number] 11/25/2025 167587 / NA / [id number] Description:Used for procedu re and removed at end of case. [employer] [id number] 4mm 140mm Knee Straight Pin Fixation Sterile - Sna - [id number] Explanted:Qty: 1 on 04/20/2021 by Vasquez Small MD at [facility] Pin Right: Knee [employer] [id number] 12/17/2025 265699 / NA / [id number] Description:Used for procedu re and removed at end of case. [employer] 4mm 110mm Pin Fixation Sterile 453841 - [id number] Explanted:Qty: 1 on 01/11/2022 at [facility] [employer] [id number] / / Description:Used for fixatio n, not an implant [employer] 4mm 140mm Knee Straight Pin Fixation Sterile 271323 - [id number] Explanted:Qty: 1 on 01/11/2022 at [facility] [employer] [id number] / / Description:Used for fixatio n, not an implant [id number] REF [facility] [place] [address] [place] [address] [facility] H[facility] REF Advance Directives For more information, please contact: [phone] * Full Code (Latest Code Status on File) Date Activated Date Inactivated Comments 01/11/2022 11:02 AM 01/12/2022 4:23 PM * Full Code Date Activated Date Inactivated Comments 04/20/2021 2:43 PM 04/21/2021 6:34 PM Care Teams Hospital Director Relationship Specialty Start Date End Date Booker Prakash DO PCP - General Family Medicine 12/08/21
--- OUTSIDE RECORDS SUMMARY | 2024-06-13 08:53 | XMS_ITS | Referral Summary ---
Author Organization [facility] Address [address] [place] [address] Care Team Providers Care Matchbook Maker Name Role Phone Booker Prakash Primary Care Provider [phone] Allergies No known active allergies Medications amLODIPine [...] (12/08/2021): Added automatically from request for surgery [id number] HTN (hypertension) 04/14/2021 HLD (hyperlipidemia) 04/14/2021 Class 2 obesity in adult 04/14/2021 Risk factors for obstructive sleep apnea 021 Primary osteoarthritis of right knee 02/10/2021 Overview (02/10/2021): Added automatically from request for surgery [id number] Social History Tobacco Use Types Packs/Day Years [...] 01/11/2022 5:54 AM CDT Plan of Treatment Not on file Medical Devices Implanted Type Area Job Setter Device Identifier Shelf Expiration Date Model / Serial / Lot [employer] 5517-F-202 Triathlon Cruciate Retain Bead Knee Right 2 Component Femoral Pa - Sna - [id number] Implanted:Qty: 1 on 04/20/2021 by Beto Jose MD at [facility] Other - see comments Right: Knee [employer] [id number] 09/03/2025 5517-F-2 02 / NA / [id number] Description:Implant pause pe rformed prior to implant being opened to sterile field. [employer] 5536-B-300 Triathalon 44mm 67mm 3 Baseplate Tibial Tritanium Sterile Latex - Sna - [id number] Implanted:Qty: 1 on 04/20/2021 by Beto Jose MD at [facility] Other - see comments Right: Knee [employer] [id number] 02/18/2026 5536-B-3 00 / NA / [id number] Description:Implant pause pe rformed prior to implant being opened to sterile field. [employer] 2687-G-116-E Insert Tibial Triathlon 3 H10 Mm Knee Bearing Condylar Stabilize Sterile - Sna - [id number] Implanted:Qty: 1 on 04/20/2021 by Beto Jose MD at [facility] Other - see comments Right: Knee [employer] [id number] 02/16/2026 5531-G-3 10-E / NA / [id number] Description:Implant pause pe rformed prior to implant being opened to sterile field. [employer] Triathlon Cruciate Retain Bead Knee Left 3 Component Femoral Pa 5517-F-301 - [id number] Implanted:Qty: 1 on 01/11/2022 by Beto Jose MD at [facility] Left: Knee [employer] [id number] 07/08/2026 5517-F-3 01 / / [id number] [employer] Triathalon 44mm 67mm 3 Baseplate Tibial Tritanium Sterile Latex 5536-B-300 - [id number] Implanted:Qty: 1 on 01/11/2022 by Beto Jose MD at [facility] Left: Knee [employer] [id number] 09/10/2026 5536-B-3 00 / / [id number] Description:Implant pause do ne prior to opening all implants [employer] Triathlon 12mm Bearing Condylar Stabilize Knee 3 Insert Tibial 8932-Z-723-E - [id number] Implanted:Qty: 1 on 01/11/2022 by Beto Jose MD at [facility] Left: Knee [employer] [id number] 01/27/2026 5531-G-3 12-E / / [id number] Explanted Type Area Job Setter Device Identifier Shelf Expiration Date Model / Serial / Lot [employer] [id number] 4mm 110mm Pin Fixation Sterile - Sna - [id number] Explanted:Qty: 1 on 04/20/2021 by Beto Jose MD at [facility] Pin Right: Knee [employer] [id number] 11/25/2025 695268 / NA / [id number] Description:Used for procedu re and removed at end of case. [employer] 193456 4mm 140mm Knee Straight Pin Fixation Sterile - Sna - [id number] Explanted:Qty: 1 on 04/20/2021 by Vasquez Small MD at [facility] Pin Right: Knee [employer] [id number] 12/17/2025 162046 / NA / [id number] Description:Used for procedu re and removed at end of case. [employer] 4mm 110mm Pin Fixation Sterile 823993 - [id number] Explanted:Qty: 1 on 01/11/2022 at [facility] [employer] [id number] / / Description:Used for fixatio n, not an implant [employer] 4mm 140mm Knee Straight Pin Fixation Sterile 268514 - [id number] Explanted:Qty: 1 on 01/11/2022 at [facility] [employer] [id number] / / Description:Used for fixatio n, not an implant [facility] MEDICARE Address: [facility] [address] [place] [address] [facility] [id number] HMO REF HEALTH [facility] MEDICARE Address: [address] [place] [address] [employer] [id number] HMO REF [facility]ALTH [facility] MEDICARE Address: [address] [address] [place] [address] [place] [address] Advance Directives For more information, please contact: [phone] * Full Code (Latest Code Status on File) Date Activated Date Inactivated Comments 01/11/2022 11:02 AM 01/12/2022 4:23 PM * Full Code Date Activated Date Inactivated Comments 04/20/2021 2:43 PM 04/21/2021 6:34 PM Care Teams Matchbook Maker Relationship Specialty Start Date End Date Booker Prakash DO PCP - General Family Medicine 12/08/21
--- OUTSIDE RECORDS SUMMARY | 2024-06-13 08:53 | XMS_ITS | Clinical Summary ---
Author Organization [facility] Address [address] [place] [address] Care Team Providers Care Cardiology Nurse Name Role Phone Unavailable Primary Care Provider Unavailabl e Social History Tobacco Use Types Packs/Day Years Used Date Smoking Tobacco: Never Assessed Comments Unknown Sex and Gender Information Value Date Recorded Sex Assigned at Not on file Legal Sex Female 8:23 PM CDT Gender Identity Not on file Sexual Orientation Not on file Plan of Treatment Health Maintenance Due Date Last Done Comments Colorectal Cancer Screening Colonoscopy (10 Years) 1955 Hepatitis C 1973 DTaP, Tdap and Td Vaccines ( 1 - Tdap) 1974 Mammogram Screening 1995 Zoster Vaccines (1 of 2) 2005 Dexa Scan (General) 2020 Pneumococcal Vaccine: 65+ Ye ars (1 of 1 - PCV) 2020 COVID-19 Vaccine ( - 2023-2 5 season) 2023 Influenza Adult (#1) 2024 RSV Immunization or 60+ Years (1 - 1-dose 75+ series) 2030 Meningococcal B Vaccine Aged Out No l onger eligible based on patient's age to complete this topic Meningococcal Vaccine Aged Out No jake dahiana eligible based on patient's age to complete this topic RSV Immunizations Under 20 Months Aged Out No longer eligible based on patient's age to complete this topic
--- OUTSIDE RECORDS SUMMARY | 2024-06-13 08:53 | XMS_ITS | Patient Health Record ---
Author Organization [facility] Address [address] [place] [address] Support Name Relationship Address Phone Supriya Mcdaniels Guarantor Unknown [phone] Reason For Referral No Information Medications Medication SIG (Take, Route, Frequency, Duration) Notes Start Date End Date Status Gentamicin Sulfate 0.3 % 4 drops into af fected ear otic every 4 hrs for 5 days 11/12/2014 Acti ve Plan Of Treatment No Information
--- OUTSIDE RECORDS SUMMARY | 2024-06-13 08:53 | XMS_ITS | Patient Health Summary ---
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 Narrative Resulting Agency Comment [address] [phone] Tacos Álvarez MD LAB - CHEMISTRY ORD ERABLES Performing Organization Address [facility] Co de Phone Number [facility] INSURANCE BILL * DNA ANTIBODY DOUBLE STRAND (02/04/2010 12:47 PM CDT) Anti-dsDNA Quantitative 1 0 - 9 IU/mL [facility] INSURANCE BILL Comment: Negative <5 Equivocal 5 - 9 Positive >9 BLOOD SPECIMEN / Unknown 02/04/2010 12:47 PM CDT 02/04/2010 8:37 PM CDT Narrative Resulting Agency Comment [address] [phone] Tacos Álvarez MD LAB - HEMATOLOGY OR DERABLES [facility] INSURANCE BILL * VITAMIN D 25-HYDROXY (02/04/2010 12:47 PM CDT) Vitamin D, 25 Hydroxy 39.4 32.0 - 100.0 ng/mL [facility] INSURANCE BILL Comment: Recent studies consider the lower limit of 32.0 ng/mL to be a threshold for optimal health. Timbo MELENDEZ. J Nutr. 2004;135(2):317-22. 02/04/2010 12:4 7 PM CDT 02/04/2010 8:37 PM CDT Narrative Resulting Agency Comment [address] [phone] Tacos Álvarez MD LAB - CHEMISTRY ORD ERABLES [facility] INSURANCE BILL * ANGIOTENSIN CONVERT ENZYME BLOOD (02/04/2010 12:47 PM CDT) Pathologist [facility] Angiotensin-Con verting Enzyme 53 12 - 68 U/L [facility] INSURANCE BILL BLOOD SPECIMEN / Unknown 02/04/2010 12:47 PM CDT 02/04/2010 8:37 PM CDT Narrative Resulting Agency Comment [address] [phone] Tacos Álvarez MD LAB - CHEMISTRY ORD ERABLES [facility] INSURANCE BILL * ALDOLASE (02/04/2010 12:47 PM CDT) Pathologist [facility] Aldolase 4.5 1.2 - 7.6 U/L [facility] INSURANCE BILL BLOOD SPECIMEN / Unknown 02/04/2010 12:47 PM CDT 02/04/2010 8:37 PM CDT Narrative Resulting Agency Comment [address] [phone] Tacos Álvarez MD LAB - CHEMISTRY ORD ERABLES [facility] INSURANCE BILL * COMPLEMENT C4 (02/04/2010 12:47 PM CDT) Pathologist [facility] Complement C4 30 9 - 36 mg/dL Adult [facility] INSURANCE BILL BLOOD SPECIMEN / Unknown 02/04/2010 12:47 PM CDT 02/04/2010 8:37 PM CDT Narrative Resulting Agency Comment [facility] [address] [facility] [phone] Tacos Álvarez MD LAB - SEROLOGY ORDE RABLES [facility] INSURANCE BILL * CK BLOOD (02/04/2010 12:47 PM CDT) CK 71 24 - 173 U/L [facility] INSURANCE BILL BLOOD SPECIMEN / Unknown 02/04/2010 12:47 PM CDT 02/04/2010 8:37 PM CDT Narrative Resulting Agency Comment [facility] [address] [facility] [phone] Tacos Álvarez MD LAB - CHEMISTRY ORD ERABLES Performing Organization Address [facility] Co de Phone Number [facility] INSURANCE BILL * PROTEIN ELECTROPHORESIS BLOOD (02/04/2010 12:47 PM CDT) Albumin 4.3 3.2 - 5.6 g/dL [facility] INSURANCE BILL Alpha-1 Globulin 0.2 0.1 - 0.4 g/dL [facility] INSURANCE BILL Bptee-6-Xodmmrtk 0.6 0.4 - 1.2 g/dL [facility] INSURANCE BILL Beta-Globulin 1.1 0.6 - 1.3 g/dL [facility] INSURANCE BILL Gamma Globulin 1.2 0.5 - 1.6 g/dL [facility] INSURANCE BILL M-Giorgio Not Observed Not Observed g/dL [facility] INSURANCE BILL Globulin Total 3.0 2.0 - 4.5 g/dL [facility] INSURANCE BILL Albumin/Globulin Ratio 1.4 0.7 - 2.0 [facility] INSURANCE BILL Please Note [facility] INSURANCE BILL Comment: Protein electrophoresis scan will follow via computer, mail, or general engineering teacher delivery. 02/04/2010 12:4 7 PM CDT 02/04/2010 8:37 PM CDT Narrative Resulting Agency Comment [place] [phone] [facility] [phone] Tacos Álvarez MD LAB - CHEMISTRY ORD ERABLES [facility] INSURANCE BILL * COMPLEMENT C3 (02/04/2010 12:47 PM CDT) Complement C3 143 90 - 180 mg/dL Adult [facility] INSURANCE BILL BLOOD SPECIMEN / Unknown 02/04/2010 12:47 PM CDT 02/04/2010 8:37 PM CDT Narrative Resulting Agency Comment [facility] [address] [facility] [phone] Tacos Álvarez MD LAB - CHEMISTRY ORD ERABLES [facility] INSURANCE BILL Care Teams Biochemical Engineer Relationship Specialty Start Date End Date Kirk Giron MD [address] [place] [address] [phone] PCP - General 07/24/21 Kirk Giron MD [address] [place] [phone] Gastroenterology 02/04/10 Tacos Álvarez MD [address] [place] [address] [phone] Rheumatology 06/11/11
[2024-06-13 09:02] LABS: Cholesterol 126 mg/dL (0-200); HDL Direct 49 mg/dL; Triglycerides 73 mg/dL (<150)
[2024-06-13 09:12] LABS: LDL Cholesterol Direct 49 mg/dL
== END 2024-06-13 08:32 | disposition home or self-care (01) ==
PROVIDERS: PCP Family Medicine; Visit Provider Family Medicine
DX: E78.5 Hyperlipidemia, unspecified (principal); M47.896 Other spondylosis, lumbar region
CPT/HCPCS: 36415; 72100; 80061

== ENCOUNTER → 2024-07-10 10:07 | Outpatient (CLI) | payer MEDICARE, OTHER, SELFPAY ==
--- NOTE | ~2024-07-10 | XR_ITS ---
EXAMINATION: XR foot RT min 3V DATE: 07/10/2024 10:26 INDICATION: Right foot pain. TECHNIQUE: 4 views of right foot were obtained. COMPARISON: Right foot radiographs 12/19/2019 FINDINGS: Bone alignment is normal. No fracture. There is mild osteoarthritis of first metatarsophala ngeal joint and some of the interphalangeal joints and midfoot joints. There is moderate osteoarthrit is of second distal interphalangeal joint. There is severe osteoarthritis of second tarsometatarsal j oint. There is an enthesophyte at plantar aspect of calcaneal tuberosity. IMPRESSION: 1. Polyarticular osteoarthritis. Reviewed, dictated and finalized at location A.
== END ==
LOC: EXPCRAD 10:13
PROVIDERS: PCP Family Medicine; Visit Provider Family Medicine
DX: M19.071 Primary osteoarthritis, right ankle and foot (principal)
CPT/HCPCS: 73630

== ENCOUNTER 2024-07-31 09:33 | Outpatient (RCR) | payer MEDICARE, OTHER, SELFPAY ==
[2024-07-31 09:37] VITALS: BMI 39.6
[2024-07-31 10:24] VITALS: BMI 39.6
== END 2024-10-15 09:09 | disposition home or self-care (01) ==
LOC: ANHDMC 09:33
PROVIDERS: PCP Family Medicine; Visit Provider Family Medicine
DX: E66.09 Other obesity due to excess calories (principal); Z68.41 Body mass index [BMI] 40.0-44.9, adult; Z71.3 Dietary counseling and surveillance
CPT/HCPCS: 97802

== ENCOUNTER 2024-12-10 07:23 | Outpatient (RCR) | payer MEDICARE, OTHER, SELFPAY ==
[2024-09-13 09:19] VITALS: BMI 39.4
== END 2024-12-12 23:59 | disposition home or self-care (01) ==
LOC: ANHWOC 07:23
PROVIDERS: PCP Family Medicine; Visit Provider Family Medicine
DX: Z48.00 Encounter for change or removal of nonsurgical wound dressing (principal); S81.802A Unspecified open wound, left lower leg, initial encounter
CPT/HCPCS: 99213; 99214; A9270; G0463